=== PATIENT | female | born 1990 | race Caucasian/White ===

== ENCOUNTER 2025-06-22 13:20 | Outpatient (CLI) | payer OTHER | END 2025-06-22 14:41 | disposition home or self-care (01) | LOC: NST 13:20 | PROVIDERS: ATTEND Obstetrics & Gynecology | DX: Z34.83 Encounter for supervision of other normal pregnancy, third trimester (principal) ==

== ENCOUNTER 2025-06-26 13:15 | Inpatient (IN) | payer OTHER ==
[~2025-06-26] VITALS: Ht 165.1 cm; Wt 79.4 kg
[2025-07-07 16:55] VITALS: BP 116/71
[2025-07-07] MEDS ORDERED: MISOPROSTOL 25 MCG TABLET VAG ONE (17:00)
[2025-07-07] MEDS ORDERED: PRENATAL TABLE1 EAC4 PO (17:40)
[2025-07-07] MEDS ORDERED: PROBIOTIC1 EAC2 PO (17:40)
[2025-07-07] MEDS ORDERED: VITAMIN C100 MG PO (17:40)
[2025-07-07 18:43] LABS: BASO % 0.3 % (0.1-1.2); EOS # 0.06 (0.04-0.54); EOS % 0.5 % (0.7-7.0); LYMPH # 1.79 (1.18-3.74); LYMPH % 15.5 % (19.3-53.1); MEAN PLATELET VOLUME 10.60 fl (9.4-12.4); MONO # 0.85 (0.24-0.82); MONO % 7.4 % (4.7-12.5); NEUT # 7.71 (1.56-6.13); NEUT % 66.9 % (34.0-71.1); RED CELL DISTRIBUTION WIDTH 14.2 % (11.6-14.4)
[2025-07-07 18:53] LABS: INR < 0.93
[2025-07-07 19:01] LABS: ALT/SGPT 26.0 U/L (12-78); AST/SGOT 13.0 U/L (15-37); BILIRUBIN TOTAL 0.36 mg/dL (0.3-1.2); BUN CREA RATIO 15.0 (7.0-25.0); CREATININE SERUM 0.68 mg/dL (0.55-1.02); GFR 99.65; GLOBULINA 3.5 G/DL (2.4-3.5); GLUCOSE FASTING 101.0 mg/dL (65-100); OSMOLALITY SERUM 279.0 MOSM/KG (275-295)
[2025-07-07 19:08] LABS: LYMPHOCYTE MAN 13.0 %; MONOCYTE MAN 8.0 %; MYELOCYTE 7.0 %; NEUTROPHILS MAN 68.0 %
[2025-07-07] MEDS ORDERED: RINGERS SOLUTION,LACTATED 1,000 ML IV SCH (19:30)
[2025-07-07] MEDS ORDERED: MISOPROSTOL 25 MCG TABLET ONE (20:18)
[2025-07-07 20:45] VITALS: BP 117/79
[2025-07-07] MEDS ORDERED: MORPHINE SULFATE 4 MG/ML VIAL IV PRN (21:00)
[2025-07-07 23:53] VITALS: BP 125/75
[2025-07-08] VITALS (8 sets, daily range): BP systolic 103–135; BP diastolic 60–75
[2025-07-08] MEDS ORDERED: OXYTOCIN 500 ML IV ONE (07:15)
[2025-07-08] MEDS ORDERED: CHLORHEXIDINE GLUCONATE 120 ML BOTTLE TOP ONE ×2 (10:17→11:30)
[2025-07-08] MEDS ORDERED: OXYTOCIN 20 UNITS/1000ML RL PIGGYBAG IV ONE (10:17)
[2025-07-08] MEDS ORDERED: ERYTHROMYCIN BASE OPHT 1GM EACH TUBE OP ONE (10:17)
[2025-07-08] MEDS ORDERED: LIDOCAINE HCL 1% 10ML VIAL ONE (10:17)
[2025-07-08] MEDS ORDERED: AMPICILLIN SODIUM 2,000 MG VIAL IV NR (11:00)
[2025-07-08] MEDS ORDERED: OXYTOCIN 1,000 ML IV ONE (11:30)
[2025-07-08] MEDS ORDERED: DOCUSATE SODIUM 100MG CAP PO SCH (17:00)
[2025-07-09 02:11] VITALS: BP 105/65
[2025-07-09 07:03] LABS: BASO % 0.5 % (0.1-1.2); EOS # 0.11 (0.04-0.54); EOS % 0.6 % (0.7-7.0); LYMPH # 2.84 (1.18-3.74); LYMPH % 16.5 % (19.3-53.1); MEAN PLATELET VOLUME 10.90 fl (9.4-12.4); MONO # 1.59 (0.24-0.82); MONO % 9.2 % (4.7-12.5); NEUT # 11.52 (1.56-6.13); NEUT % 67.0 % (34.0-71.1); RED CELL DISTRIBUTION WIDTH 14.4 % (11.6-14.4)
[2025-07-09 07:53] LABS: BAND MAN 9.0 %; EOSINOPHIL MAN 1.0 %; LYMPHOCYTE MAN 15.0 %; METAMYELOCYTE 1.0 %; MONOCYTE MAN 13.0 %; NEUTROPHILS MAN 57.0 %
[2025-07-09 08:58] VITALS: BP 109/69
[2025-07-09] MEDS ORDERED: PNV,CALCIUM 72/IRON/FOLIC ACID 1 TAB TABLET PO SCH (09:00)
[2025-07-09] MEDS ORDERED: IRON FUM,PS/FOLIC/BCOMP,C NO.9 1 CAP CAPSULE PO SCH (09:00)
[2025-07-09 13:39] VITALS: BP 108/68
[2025-07-09 17:05] VITALS: BP 111/69
[2025-07-10 01:20] VITALS: BP 115/75
[2025-07-10 09:02] VITALS: BP 109/74
== END 2025-07-10 12:17 | disposition home or self-care (01) | DRG 807 ==
LOC: EDUNIT# 06-29 14:30 → OB/GYN 07-04 14:30 → LDR 07-07 16:46 → OB/GYN 07-08 12:06
PROVIDERS: Obstetrics & Gynecology Gynecology; ADMIT Obstetrics & Gynecology; ATTEND Obstetrics & Gynecology
PROC: 4A1HXCZ Monitoring of Products of Conception, Cardiac Rate, External Approach (ICD-10-PCS; 2025-07-07)
PROC: 3E0P7VZ Introduction of Hormone into Female Reproductive, Via Natural or Artificial Opening (ICD-10-PCS; 2025-07-07)
PROC: 10E0XZZ Delivery of Products of Conception, External Approach (ICD-10-PCS; principal; 2025-07-08)
PROC: 0KQM0ZZ Repair Perineum Muscle, Open Approach (ICD-10-PCS; 2025-07-08)
PROC: 3E033VJ Introduction of Other Hormone into Peripheral Vein, Percutaneous Approach (ICD-10-PCS; 2025-07-08)
DX: O70.1 Second degree perineal laceration during delivery (principal); Z37.0 Single live birth; Z3A.40 40 weeks gestation of pregnancy

== ENCOUNTER → 2025-06-29 | Outpatient (CLI) | payer OTHER | END | disposition home or self-care (01) | LOC: NST 15:48 | PROVIDERS: ATTEND Obstetrics & Gynecology Gynecology | DX: Z34.83 Encounter for supervision of other normal pregnancy, third trimester (principal) ==